=== PATIENT | female | born 2005 | race Two or more races ===

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

== ENCOUNTER 2025-03-09 18:45 | Emergency (ER) | payer MEDICAID ==
[~2025-03-09] VITALS: Ht 152.4 cm; Wt 44.5 kg
[2025-03-09 19:24] LABS: Hematocrit 42.9 % (36.0-46.0); Hemoglobin 14.5 g/dL (12.2-16.2); Mean Corpuscular Hemoglobin 31.6 pg (28.0-32.0); Mean Corpuscular Volume 93.2 fL (80.0-100.0); Nucleated Red Blood Cells % 0.1 %
[2025-03-09 19:37] LABS: Alanine Aminotransferase 11 U/L (7-40); Alkaline Phosphatase 63 U/L (46-116); Anion Gap 14 (5-15); BUN/Creatinine Ratio 19.3 (10.0-20.0); Blood Urea Nitrogen 11 mg/dL (9-23); Calcium 9.8 mg/dL (8.7-10.4); Carbon Dioxide 20 mmol/L (20-31); Chloride 104 mmol/L (98-107); Glucose 105 mg/dL (74-106); Lipase 31 U/L (12-53); Potassium 3.4 mmol/L (3.5-5.1); Sodium 138 mmol/L (136-145); Total Protein 8.0 g/dL (5.7-8.2)
[2025-03-09 19:38] LABS: Albumin 5.1 g/dL (3.2-4.8); Bilirubin, Total 0.7 mg/dL (0.2-1.0)
[2025-03-09 20:23] LABS: Urine Protein, UAD 2+ (Negative)
--- NOTE | 2025-03-09 20:28 | ED.PDOC ---
History of Present Illness HPI Comments 19-year-old female who presents with chief complaint of nausea, vomiting, and diarrhea. Patient endorses on 1 day history of symptoms. Symptoms are constant. Vomitus is reported to contain food content only. She reports on learning on being , recently, 2 days ago. Patient is unaware of how far along her she is in. Last menstrual period stated to be 02/21/2025. No recent injuries, travel, sick contact, or significant medical or surgical history, aside from previous H pylori. Denies having any abdominal pain, bloody or bilious vomitus, diarrhea, constipation, urinary symptoms, fever, chills, or further associated symptoms. REVIEW OF SYSTEMS: General: No fever, no chills, HEENT: No neck pain, no blurred vision Cardiac: No chest pain. No palpitations. Lungs: No shortness of breath, GI: Nausea, vomiting, diarrhea, no abdominal pain Musculoskeletal: No joint pain , no back pain Skin: No rash, no wound Neuro: No headache, no dizziness, no syncope PHYSICAL EXAM: General: Awake, alert and oriented. No acute distress. Skin: Skin in warm, dry and intact without rashes or lesions. HEENT: The head is normocephalic and atraumatic. Conjunctivae are clear without exudates or hemorrhage. Sclera is non-icteric. Neck: Normal range of motion. No JVD. Cardiac: Regular rate Respiratory: No signs of respiratory distress. No Stridor. Gastrointestinal: epigastric tenderness Extremities: Upper and lower extremities are atraumatic in appearance without deformity. Neurological: The patient is awake, alert and oriented to person, place, and time with normal speech. Speech is clear. There is no facial asymmetry. Psychiatric: Appropriate mood and affect. Good judgement and insight. Chief Complaint: Nausea/Vomiting Time Seen by MD: 19:00 Primary Care Provider: KUSHAL Michael Notes: Nurses Notes, Medications, Allergies Allergies: Coded Allergies: NO KNOWN ALLERGIES (Unverified , 08/07/18) Home Meds Active Scripts Pyridoxine Hcl (Vitamin B-6) 25 Mg Tab, 25 MG PO Q8HPRN PRN for 10 Days, #30 TAB Prov:KIRSTEN PATEL MD 03/09/25 Information Source: Patient Mode of Arrival: Ambulatory Severity: Moderate Timing: Days Duration: Since onset Prehospital treatment: None Past Medical History Past Medical History (Other): Previous H pylori infection Surgical History: Denies all surgeries WINDOW DECORATOR History: No Pertinent WINDOW DECORATOR History LMP 02/01/2025 Family History Family History: Reviewed,noncontributory to illness, Unknown Social History Smoker: Non-Smoker Alcohol: Denies ETOH Use Drugs: Denies Drug Use Lives In: Home Was a procedure done? Was a procedure done?: No Differential Dx Considerations may include: Differential diagnosis considered include but are not limited to nausea and vomiting of , UTI, thyroid disorder, pancreatitis, electrolyte imbalance, molar , other X-Ray, Labs, Meds, VS Vital Signs Date Time Temp Pulse Resp B/P (MAP) Pulse Ox O2 Delivery O2 Flow Rate FiO2 03/09/25 22:29 88 16 98 Room Air* 0 21 03/09/25 22:29 97.9 88 16 114/75 (88) 98 97.9 03/09/25 18:50 98.6 119 16 126/66 98 98.6 Lab Test 03/09/25 20:00 03/09/25 19:05 Range/Units Urine Color Yellow Yellow Urine Clarity Turbid H Clear Urine pH 6.0 5.0-9.0 Urine Specific [place] 1.034 1.001-1.035 Urine Protein 2+ H Negative Urine Ketones 4+ H Negative Urine Blood Trace H Negative /uL Urine Nitrite Negative Negative Urine Bilirubin Negative Negative Urine Urobilinogen 2 H Negative mg/dL Urine Leukocyte Esterase Negative Negative /uL Urine Glucose Trace Normal mg/dL Urine Test Positive Negative White Blood Count 11.7 H 4.4-10.8 10^3/uL Red Blood Count 4.60 4.0-5.20 10^6/uL Hemoglobin 14.5 12.2-16.2 g/dL Hematocrit 42.9 36.0-46.0 % Mean Corpuscular Volume 93.2 80.0-100.0 fL Mean Corpuscular Hemoglobin 31.6 28.0-32.0 pg Mean Corpuscular Hemoglobin Concent 33.9 32.0-36.0 g/dL Red Cell Distribution Width 13.0 11.8-14.3 % Platelet Count 341 140-450 10^3/uL Mean Platelet Volume 8.5 6.9-10.8 fL Neutrophils (%) (Auto) 85.5 H 37.0-80.0 % Lymphocytes (%) (Auto) 11.1 10.0-50.0 % Monocytes (%) (Auto) 3.1 0.0-12.0 % Eosinophils (%) (Auto) 0.0 0.0-7.0 % Basophils (%) (Auto) 0.3 0.0-2.0 % Neutrophils # (Auto) 10.0 H 1.6-8.6 10 ^3/uL Lymphocytes # (Auto) 1.3 0.4-5.4 10 ^3/uL Monocytes # (Auto) 0.4 0-1.3 10 ^3/uL Eosinophils # (Auto) 0 0-0.8 10 ^3/uL Basophils # (Auto) 0 0-0.2 10 ^3/uL Nucleated Red Blood Cells 0.1 % Sodium Level 138 136-145 mmol/L Potassium Level 3.4 L 3.5-5.1 mmol/L Chloride Level 104 98-107 mmol/L Carbon Dioxide Level 20 20-31 mmol/L Anion Gap 14 5-15 Blood Urea Nitrogen 11 9-23 mg/dL Creatinine 0.57 0.550-1.02 mg/dL Glomerular Filtration Rate Calc 133 >90 mL/min BUN/Creatinine Ratio 19.3 10.0-20.0 Serum Glucose 105 74-106 mg/dL Lactic Acid Level 1.5 0.4-2.0 mmol/L Calcium Level 9.8 8.7-10.4 mg/dL Total Bilirubin 0.7 0.2-1.0 mg/dL Aspartate Amino Transferase (AST) 15 13-40 U/L Alanine Aminotransferase (ALT) 11 7-40 U/L Alkaline Phosphatase 63 46-116 U/L Total Protein 8.0 5.7-8.2 g/dL Albumin 5.1 H 3.2-4.8 g/dL Lipase 31 12-53 U/L Current Medications Medications (Trade) Dose Ordered Sig/Juan Luis Route Start Time Stop Time Status Last Admin Ondansetron HCl (Zofran Po) 4 mg ONCE ONCE PO 03/09/25 19:00 03/09/25 19:01 DC 03/09/25 22:02 Pyridoxine HCl (Vitamin B-6 Tablet) 50 mg ONCE ONCE PO 03/09/25 19:45 03/09/25 19:46 DC 03/09/25 22:02 Potassium Chloride (Klor-Con Tablet) 40 meq ONCE ONCE PO 03/09/25 20:30 03/09/25 20:35 DC 03/09/25 22:02 Time of 1ST Reevaluation: 19:30 Reevaluation 1ST: Unchanged Patient Education/Counseling: Need For Follow Up Family Education/Counseling: No Family Present SEPSIS Sepsis Screen Date sepsis recognized/suspect: Mar 09, 2025 Time Sepsis recognized/suspect: 1854 Recent Procedure: No On Antibiotic Therapy: No Respiratory Rate >20: No Heart Rate >90: No Temp<36 C (96.8 F) or >38.3 C: No SBP <90 or MAP <65 mmHG: No New Acute Mental Status Change: No Is the patient on CPAP, BIPAP,: No Vital Signs Date Time Temp Pulse Resp B/P (MAP) Pulse Ox O2 Delivery O2 Flow Rate FiO2 03/09/25 22:29 88 16 98 Room Air* 0 21 03/09/25 22:29 97.9 88 16 114/75 (88) 98 97.9 03/09/25 18:50 98.6 119 16 126/66 98 98.6 Laboratory Tests Test 03/09/25 19:05 Lactic Acid Level 1.5 mmol/L (0.4-2.0) White Blood Count 11.7 10^3/uL (4.4-10.8) H Medications Medications Dose Ordered Sig/Juan Luis Route Start Time Stop Time Status Last Admin Dose Admin Ondansetron HCl 4 mg ONCE ONCE PO 03/09/25 19:00 03/09/25 19:01 DC 03/09/25 22:02 Potassium Chloride 40 meq ONCE ONCE PO 03/09/25 20:30 03/09/25 20:35 DC 03/09/25 22:02 Pyridoxine HCl 50 mg ONCE ONCE PO 03/09/25 19:45 03/09/25 19:46 DC 03/09/25 22:02 Departure 1 Departure Time of Disposition: 04:11 Impression: Primary Impression: Vomiting of Additional Impression: Hypokalemia Disposition: 01 HOME / SELF CARE / HOMELESS Condition: Stable Additional Instructions: ED DISCHARGE INSTRUCTIONS Instructions: Please read all instructions provided in this packet carefully. Although you have been discharged from the Emergency Department, this does not mean that you have a "clean bill of health". No definitive diagnosis for your symptoms has been made today. It is possible that you are in the process of developing a serious illness. This is why you must return to the ED without fail if any new or worsening symptoms (especially if your symptoms include chest pain, trouble breathing, abdominal pain, fever, headache, confusion, trouble seeing, or trouble walking) It is also very important that you see a primary care provider (PCP) within the next1-3 days to follow up. If you are unable to get an appointment, return to the ED for re-evaluation. e-Prescriptions Pyridoxine Hcl (Vitamin B-6) 25 Mg Tab 25 MG PO Q8HPRN PRN for 10 Days, #30 TAB Prov: KIRSTEN PATEL MD 03/09/25 Discharged With: Self Comments MDM: Patient well-appearing, nontoxic. Symptoms improved in the ED. Advised prompt follow-up with PCP, return to the ED with any new, worsening or concerning symptoms. I reviewed the following notes from the pt's past medical encounters: N/A The following tests were ordered, and results were reviewed by me: (See diagnostic results section) The following test were independently interpreted by me: N/A Additional information was gathered from interviewing the following independent historians: N/A I reviewed and agreed with the following test results read by other providers: N/A I discussed treatments and results with patient Decision regarding hospitalization or escalation of hospital level of care: Risks and benefits of admission for further treatment of patient's condition was considered however due to patient's stable condition patient will be discharged to follow up closely or return to care for worsening of condition or inability to follow up. Critical Care Note Critical Care Time?: No Stability Stability form required: No Heart Score Heart Score: Heart Score Response (Comments) Value History N/A 0 EKG N/A 0 Age N/A 0 Risk Factors N/A 0 Troponin N/A 0 Total 0 I personally scribed for KIRSTEN PATEL MD ([email or web address]) on 03/09/25 at 20:28. Electronically submitted by Manpreet Nuñez ([email or web address]). I personally scribed for KIRSTEN APTEL MD ([email or web address]) on 03/09/25 at 20:32. Electronically submitted by Manpreet Nuñez ([email or web address]). I personally scribed for KIRSTEN PATEL MD ([email or web address]) on 03/09/25 at 20:53. Electronically submitted by Manpreet Nuñez ([email or web address]). I personally scribed for KIRSTEN PATEL MD ([email or web address]) on 03/09/25 at 23:29. Nathaly ctronically submitted by Manpreet Nuñez ([email or web address]). KIRSTEN PATEL MD Mar 09, 2025 20:28
[2025-03-09] MEDS ORDERED: PYRI25TA16 PO (20:30)
[2025-03-09] MEDS: POTASSIUM CHL 20 Meq TABLET PO ONE (22:02)
[2025-03-09] MEDS: ONDANSETRON ODT 4 MG TAB PO ONE (22:02)
[2025-03-09] MEDS: PYRIDOXINE HCL 50 MG TAB PO ONE (22:02)
[2025-03-09 22:29] VITALS: BP 114/75; PULSE 88; RESP 16; TEMP 97.9; O2SAT 98
== END 2025-03-09 22:22 | disposition home or self-care (01) ==
LOC: ER 18:45
DX: O21.9 Vomiting of pregnancy, unspecified (principal); E87.6 Hypokalemia; Z86.19 Personal history of other infectious and parasitic diseases; Z79.899 Other long term (current) drug therapy; Z3A.01 Less than 8 weeks gestation of pregnancy
CPT/HCPCS: 36415; 80053; 81003; 81025; 83605; 83690; 85025; 99284; Q0162

== ENCOUNTER 2025-03-10 21:35 | Emergency (ER) | payer MEDICAID ==
[~2025-03-10] VITALS: Ht 152.4 cm; Wt 41.3 kg
[~2025-03-10 21:35] MED LIST: PYRI25TA16 PO
[2025-03-10 21:37] VITALS: BP 124/75; PULSE 72; RESP 20; TEMP 97.9; O2SAT 100
--- NOTE | 2025-03-10 21:54 | ED.PDOC ---
FINGERNAIL FORMER HPI Comments This is a 19 year-old female who presents to the ED with a chief complaint of umbilical abdominal pain with associated diarrhea for X1 day. Patient reports additional symptoms of nausea as of X2 days ago. Patient is currently with her first child. Patient came to the ED for abdominal pain yesterday, 03/09/25, but came to the ED today upon worsening symptoms and prescribed medications not helping. Patient has no further complaints at this time and otherwise denies V/D, vaginal bleeding, dizziness, fever, chills, or dysuria. REVIEW OF SYSTEMS: General: No fever, no chills, or fatigue HEENT: No sore throat, no earache, no congestion, no neck pain. Cardiac: No chest pain. No palpitations. Lungs: No shortness of breath, no cough. GI: (+) nausea, (+) abdominal pain, (+) , (+) diarrhea, no vomiting, no constipation : No dysuria, frequency, or urgency. No hematuria. Musculoskeletal: No joint pain , no joint swelling, no extremity edema. Skin: No rash, no itching. Neuro: No headache, no dizziness, no weakness Physical exam General: (+) Mild Distress. Awake, alert and oriented. Skin: Skin in warm, dry and intact. Appropriate color for ethnicity. HEENT: The head is normocephalic and atraumatic. Conjunctivae are clear without exudates or hemorrhage. Sclera is non-icteric. EOM are intact. No signs of nystagmus. Eyelids are normal in appearance without swelling or lesions. Oral m ucosa is pink and moist Neck: The neck is supple with normal range of motion. No JVD. Cardiac: Heart rate and rhythm are normal. No murmurs, gallops, or rubs are auscultated. Respiratory: No signs of respiratory distress. Lung sounds are clear in all lobes bilaterally without rales, rhonchi, or wheezes. Abdominal: (+) Periumbilical Tenderness. Bowel sounds are present and nor moactive in all four quadrants. Extremities: Upper and lower extremities are atraumatic in appearance without deformity or edema. Neurological: The patient is awake, alert and oriented to person, place, and time with normal speech. Speech is clear. There is no facial asymmetry. Psychiatric: Appropriate mood and affect. Good judgement and insight. Chief Complaint: Abdominal Pain Time Seen by MD: 21:50 Reviewed Notes: Nurses Notes, Medications, Allergies Allergies: Coded Allergies: NO KNOWN ALLERGIES (Unverified , 08/07/18) Home Meds Active Scripts Pyridoxine Hcl (Vitamin B-6) 25 Mg Tab, 25 MG PO Q8HPRN PRN for 10 Days, #30 TAB Prov:KIRSTEN PATEL MD 03/09/25 Information Source: Patient Mode of Arrival: Ambulatory Timing: Days Severity: Moderate Sexual Activity: Associated Signs and Symptoms: Abdominal Pain Past Medical History PAST MEDICAL HISTORY: Denies Surgical History: Denies all surgeries LEAD MECHANICAL ENGINEER History: No Pertinent LEAD MECHANICAL ENGINEER History 1 Para 0 Family History Family History: Reviewed,noncontributory to illness, Unknown Social History Smoker: Non-Smoker Alcohol: Denies ETOH Use Drugs: Denies Drug Use Lives In: Home Was a procedure done? Was a procedure done?: No Differential Diagnosis (LEAD MECHANICAL ENGINEER) Vaginal Bleeding: - Threatened, Ectopic , Trauma, UTI, Vaginitis, Other ( , other) X-Ray, Labs, Meds, VS Vital Signs Date Time Temp Pulse Resp B/P (MAP) Pulse Ox O2 Delivery O2 Flow Rate FiO2 03/10/25 21:37 97.9 72 20 124/75 100 97.9 Lab Test 03/10/25 23:53 03/10/25 22:10 Range/Units Urine Color Light-orange Yellow Urine Clarity Turbid H Clear Urine pH 5.5 5.0-9.0 Urine Specific [place] 1.030 1.001-1.035 Urine Protein 1+ H Negative Urine Ketones 3+ H Negative Urine Blood Negative Negative /uL Urine Nitrite Negative Negative Urine Bilirubin Negative Negative Urine Urobilinogen Normal Negative mg/dL Urine Leukocyte Esterase Trace Negative /uL Urine RBC None seen 0 - 4 /hpf Urine Microscopic WBC 4 0-5 /HPF Urine Squamous Epithelial Cells Few <5 /hpf Urine Bacteria Few H None Seen /hpf Urine Mucus Many None Seen Urine Glucose Trace Normal mg/dL White Blood Count 14.6 H 4.4-10.8 10^3/uL Red Blood Count 4.56 4.0-5.20 10^6/uL Hemoglobin 14.4 12.2-16.2 g/dL Hematocrit 41.9 36.0-46.0 % Mean Corpuscular Volume 91.8 80.0-100.0 fL Mean Corpuscular Hemoglobin 31.6 28.0-32.0 pg Mean Corpuscular Hemoglobin Concent 34.5 32.0-36.0 g/dL Red Cell Distribution Width 12.8 11.8-14.3 % Platelet Count 371 140-450 10^3/uL Mean Platelet Volume 8.3 6.9-10.8 fL Neutrophils (%) (Auto) 83.9 H 37.0-80.0 % Lymphocytes (%) (Auto) 12.0 10.0-50.0 % Monocytes (%) (Auto) 3.8 0.0-12.0 % Eosinophils (%) (Auto) 0.0 0.0-7.0 % Basophils (%) (Auto) 0.3 0.0-2.0 % Neutrophils # (Auto) 12.3 H 1.6-8.6 10 ^3/uL Lymphocytes # (Auto) 1.8 0.4-5.4 10 ^3/uL Monocytes # (Auto) 0.6 0-1.3 10 ^3/uL Eosinophils # (Auto) 0 0-0.8 10 ^3/uL Basophils # (Auto) 0 0-0.2 10 ^3/uL Nucleated Red Blood Cells 0.0 % Sodium Level 139 136-145 mmol/L Potassium Level 3.2 L 3.5-5.1 mmol/L Chloride Level 107 98-107 mmol/L Carbon Dioxide Level 13 L 20-31 mmol/L Anion Gap 19 H 5-15 Blood Urea Nitrogen 12 9-23 mg/dL Creatinine 0.63 0.550-1.02 mg/dL Glomerular Filtration Rate Calc 129 >90 mL/min BUN/Creatinine Ratio 19.0 10.0-20.0 Serum Glucose 137 H 74-106 mg/dL Calcium Level 9.8 8.7-10.4 mg/dL Total Bilirubin 1.1 H 0.2-1.0 mg/dL Aspartate Amino Transferase (AST) 14 13-40 U/L Alanine Aminotransferase (ALT) 13 7-40 U/L Alkaline Phosphatase 61 46-116 U/L Total Protein 7.9 5.7-8.2 g/dL Albumin 5.1 H 3.2-4.8 g/dL Lipase 28 12-53 U/L Beta HCG, Quantitative 25172.3 H 1.5-4.2 mIU/mL Time of 1ST Reevaluation: 22:38 Reevaluation 1ST: Unchanged Patient Education/Counseling: Need For Follow Up Family Education/Counseling: No Family Present Departure 1 Departure Time of Disposition: 00:40 Impression: Primary Impression: Eloped from emergency department Additional Impressions: Nausea/vomiting in Abdominal pain in Disposition: 07 LEFT AWOL/ELOPED Condition: Other Discharged With: Self Comments Patient was seen and evaluated. Discussed plan of care with the patient. She e loped from the emergency department prior to completing treatment and workup. Critical Care Note Critical Care Time?: No Stability Stability form required: No Heart Score Heart Score: Heart Score Response (Comments) Value History N/A 0 EKG N/A 0 Age N/A 0 Risk Factors N/A 0 Troponin N/A 0 Total 0 I personally scribed for KIRSTEN PATEL MD ([email or web address]) on 03/10/25 at 21:54. Electronically submitted by Marsha Cuadra ([email or web address]). I personally scribed for KIRSTEN PATEL MD ([email or web address]) on 03/10/25 at 22:29. Electronically submitted by Marsha Cuadra ([employer]). KIRSTEN PATEL MD Mar 10, 2025 21:54
[2025-03-10] MEDS ORDERED: ACETAMINOPHEN 500 MG TAB or CAP PO ONE (22:00)
[2025-03-10] MEDS ORDERED: PYRIDOXINE HCL 50 MG TAB PO ONE (22:00)
[2025-03-10 22:22] LABS: Hematocrit 41.9 % (36.0-46.0); Hemoglobin 14.4 g/dL (12.2-16.2); Mean Corpuscular Hemoglobin 31.6 pg (28.0-32.0); Mean Corpuscular Volume 91.8 fL (80.0-100.0); Nucleated Red Blood Cells % 0.0 %
[2025-03-10] MEDS ORDERED: SODIUM CHLORIDE 0.9% 1,000 ML IV ONE (22:30)
[2025-03-10] MEDS ORDERED: ONDANSETRON HCL 4 MG/2 ML VIAL IV ONE (22:30)
[2025-03-10 22:59] LABS: Alanine Aminotransferase 13 U/L (7-40); Alkaline Phosphatase 61 U/L (46-116); Anion Gap 19 (5-15); BUN/Creatinine Ratio 19.0 (10.0-20.0); Blood Urea Nitrogen 12 mg/dL (9-23); Calcium 9.8 mg/dL (8.7-10.4); Lipase 28 U/L (12-53); Sodium 139 mmol/L (136-145); Total Protein 7.9 g/dL (5.7-8.2)
[2025-03-10 23:00] LABS: Bilirubin, Total 1.1 mg/dL (0.2-1.0)
[2025-03-10 23:10] LABS: Albumin 5.1 g/dL (3.2-4.8); Carbon Dioxide 13 mmol/L (20-31); Chloride 107 mmol/L (98-107); Glucose 137 mg/dL (74-106); Potassium 3.2 mmol/L (3.5-5.1)
[2025-03-11 01:27] LABS: Urine Protein, UAD 1+ (Negative)
== END 2025-03-11 00:40 | disposition left against medical advice (07) ==
LOC: ER 21:35
DX: O20.0 Threatened abortion (principal); O21.9 Vomiting of pregnancy, unspecified; R10.9 Unspecified abdominal pain; Z3A.00 Weeks of gestation of pregnancy not specified
CPT/HCPCS: 36415; 80053; 81001; 83690; 84702; 85025

== ENCOUNTER 2025-03-13 09:31 | Emergency (ER) | payer MEDICAID ==
[~2025-03-13] VITALS: Ht 152.4 cm; Wt 41.7 kg
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
[2025-03-13] MEDS: ONDANSETRON HCL 4 MG/2 ML VIAL IV ONE (10:36)
[2025-03-13] MEDS: SODIUM CHLORIDE 0.9% 1,000 ML IV ONE (10:36)
[2025-03-13 10:50] LABS: Chloride 99 mmol/L (98-107); Hematocrit 43.8 % (36.0-46.0); Hemoglobin 15.4 g/dL (12.2-16.2); Mean Corpuscular Hemoglobin 32.2 pg (28.0-32.0); Mean Corpuscular Volume 91.3 fL (80.0-100.0); Nucleated Red Blood Cells % 0.1 %
[2025-03-13 10:51] LABS: Anion Gap 14 (5-15); Carbon Dioxide 23 mmol/L (20-31); Potassium 3.0 mmol/L (3.5-5.1); Sodium 136 mmol/L (136-145)
[2025-03-13 10:52] LABS: Calcium 10.0 mg/dL (8.7-10.4)
[2025-03-13 10:56] LABS: Cannabinoid Screen, Urine Pos (NEGATIVE)
[2025-03-13 10:56] LABS: BUN/Creatinine Ratio 15.4 (10.0-20.0); Blood Urea Nitrogen 10 mg/dL (9-23); Glucose 82 mg/dL (74-106)
[2025-03-13 10:59] LABS: Amphetamine Screen, Urine Neg (NEGATIVE); Barbiturate Scree,Urine Neg (NEGATIVE); Benzodiazephine Screen, Urine Neg (NEGATIVE); Cocaine Screen, Urine Neg (NEGATIVE); Opiate Scree,Urine Neg (NEGATIVE); Phencyclidine Screen, Urine Neg (NEGATIVE)
[2025-03-13 11:03] LABS: Urine Protein, UAD 2+ (Negative); Urine WBC Clumps PRESENT /hpf (None Seen)
--- NOTE | 2025-03-13 11:40 | DVH ---
OB ULTRASOUND <14 WEEKS: HISTORY: PELVIC PAIN WITH N/V TECHNIQUE: Multiple real-time grayscale sonographic images of the pelvis with duplex Doppler color f low, spectral and M-mode analysis. TRANSDUCERS: Transabdominal COMPARISON: None FINDINGS: The uterus measures 8.3 x 7.3 x 4.0 cm The cervix is not visualized Right ovary measures 3.5 x 4.4 x 3.9 cm with normal Doppler color flow. Right ovarian cyst measures 3 .2 cm. Left ovary measures 3.3 x 1.8 x 2.4 cm with normal Doppler color flow. IUP single fetus at 6 weeks and 0 days average ultrasound age based on mean crown-rump length of 0.3 5 cm and gestational sac size of 1.63 cm heart rate detected at 123 beats per minute. Yolk sac is present. Amniotic fluid is subjectively within normal limits Melany-gestational space: Unremarkable IMPRESSION: IUP single live fetus 6 weeks and 0 days AUA corresponding to an ERICA of 11/06/2025. No acute abnormality detected.
[2025-03-13] MEDS: POTASSIUM EFFERVESENT TAB 25 MEQ PO ONE (11:45)
[2025-03-13] MEDS ORDERED: ZOFR4T PO (11:51)
[2025-03-13] MEDS: cefTRIAXone 1GM/50ML D5W 50 ML IV ONE (11:51)
[2025-03-13 12:10] VITALS: BP 104/69; PULSE 84; RESP 14; TEMP 97.7; O2SAT 99
== END 2025-03-13 12:14 | disposition home or self-care (01) ==
LOC: ER 09:31
DX: O21.0 Mild hyperemesis gravidarum (principal); O23.41 Unspecified infection of urinary tract in pregnancy, first trimester; R10.2 Pelvic and perineal pain; N39.0 Urinary tract infection, site not specified; Z79.899 Other long term (current) drug therapy; Z3A.01 Less than 8 weeks gestation of pregnancy
CPT/HCPCS: 36415; 76801; 80048; 80307; 81001; 84702; 85025; 96360; 99284; J7030; J2405

== ENCOUNTER 2025-04-03 04:32 | Emergency (ER) | payer MEDICAID ==
[~2025-04-03] VITALS: Ht 152.4 cm; Wt 44.0 kg
[~2025-04-03 04:32] MED LIST changes: +ZOFR4T PO
[2025-04-03] MEDS ORDERED: ZOFR4T PO (04:58)
[2025-04-03] MEDS ORDERED: METO5TAB67 PO (04:58)
--- NOTE | 2025-04-03 05:04 | ED.PDOC ---
GI ASSESSMENT HPI Comments 20 year old female presents to the ED with a chief complaint of nausea/vomiting onset 2 days. Patient states she is currently 9 weeks , ran out of Zofran prescription. For the past few days, she has been experiencing nausea, vomiting, abdominal discomfort. Denies any PMHx as well as vaginal bleeding, vaginal discharge, dysuria, hematuria, hematemesis, fever, chills, weakness, dizziness. No other symptoms or modifying factors present at this time. Chief Complaint: Nausea/Vomiting Time Seen by MD: 04:50 Primary Care Provider: KUSHAL Michael Notes: Medications, Allergies Allergies: Coded Allergies: NO KNOWN ALLERGIES (Unverified , 08/07/18) Home Meds Active Scripts Metoclopramide Hcl (Reglan) 5 Mg Tab, 5 MG PO Q6HP PRN, #30 TAB Prov:JENNIFER HARPER MD 04/03/25 Ondansetron Odt 4MG Tab (ZOFRAN PO) 4 Mg Tb, 4 MG PO Q6HP PRN, #60 TAB 3 Refills ODT TAB-DISSOLVE IN MOUTH, THEN SWALLOW Prov:JENNIFER HARPER MD 04/03/25 Ondansetron Odt 4MG Tab (ZOFRAN PO) 4 Mg Tb, 4 MG PO BID, #20 TAB ODT TAB-DISSOLVE IN MOUTH, THEN SWALLOW Prov:EDWARD LEWIS 03/13/25 Pyridoxine Hcl (Vitamin B-6) 25 Mg Tab, 25 MG PO Q8HPRN PRN for 10 Days, #30 TAB Prov:KIRSTEN PATEL MD 03/09/25 Information Source: Patient Mode of Arrival: Ambulatory Timing: Days Duration: Since onset Prehospital treatment: None Quality: Cramping Severity: Moderate Recent: None Recent Hx of: Current Pain Location: Diffuse Modifying Factors: Nothing Associated sign and symptoms: Nausea, Vomiting, Diarrhea, Abdominal Pain Past Medical History PAST MEDICAL HISTORY: Denies Surgical History: Denies all surgeries PROFILE GRINDER History: No Pertinent PROFILE GRINDER History Family History Family History: Reviewed,noncontributory to illness Social History Smoker: Non-Smoker Alcohol: Denies ETOH Use Drugs: Denies Drug Use Lives In: Home Constitutional: denies: chills, diaphoresis, fatigue, fever, malaise, sweats, weakness, others EENTM: denies: blurred vision, double vision, ear bleeding, ear discharge, ear drainage, ear pain, ear ringing, eye pain, eye redness, hearing loss, mouth pain, mouth swelling, nasal discharge, nose bleeding, nose congestion, nose pain, photophobia, tearing, throat pain, throat swelling, voice changes, others Respiratory: denies: cough, hemoptysis, orthopnea, SOB at rest, shortness of breath, SOB with excertion, stridor, wheezing, others Cardiovascular: denies: chest pain, dizzy spells, diaphoresis, Dyspnea on exertion, edema, irregular heart beat, left arm pain, lightheadedness, palpitations, PND, syncope, others Gastrointestinal: reports: abdominal pain, diarrhea, nausea, vomiting; denies: abdomen distended, blood streaked bowels, constipated, dysphagia, difficulty swallowing, hematemesis, melena, poor appetite, poor fluid intake, rectal bleeding, rectal pain, others Genitourinary: reports: ; denies: abnormal vagina bleeding, burning, dyspareunia, dysuria, flank pain, frequency, hematuria, incontinence, pain, vagina discharge, urgency, others Neurological: denies: dizziness, fainting, headache, left sided numbness, left sided weakness, numbness, paresthesia, pre-existing deficit, right sided numbness, right sided weakness, seizure, speech problems, tingling, tremors, weakness, others Musculoskeletal: denies: back pain, gout, joint pain, joint swelling, muscle pain, muscle stiffness, neck pain, others Integumetry: denies: bruises, change in color, change in hair/nails, dryness, laceration, lesions, lumps, rash, wounds, others Allergic/Immunocompromised: denies: Difficulty Healing, Frequent Infections, Hives, Itching, others Hematologic/Lymphatic: denies: anemia, blood clots, easy bleeding, easy bruising, swollen glands, others Endocrine: denies: excessive hunger, excessive sweating, excessive thirst, excessive urination, flushing, intolerance to cold, intolerance to heat, unexplained weight gain, unexplained weight loss, others Psychiatric: denies: anxiety, bipolar disorder, depression, hopeless, panic disorder, schizophrenia, sleepless, suicidal, others All Other Systems: Reviewed and Negative Physical Exam General Appearance: No Apparent Distress, Normal HEENT: Normal ENT Inspection, Pharynx Normal, TMs Normal Neck: Full Range of Motion, Non-Tender, Normal, Normal Inspection Respiratory: Chest Non-Tender, Lungs Clear, No Accessory Muscle Use, No Respiratory Distress, Normal Breath Sounds Cardiovascular: No Edema, No JVD, No Murmur, No Gallop, Normal Peripheral Pulses, Regular Rate/Rhythm Breast Exam: Deferred Gastrointestinal: No Organomegaly, Non Tender, No Pulsatile Mass, Normal Bowel Sounds, Soft Genitalia: Deferred Pelvic: Deferred Rectal: Deferred Extremities: No calf tenderness, Normal capillary refill, Normal inspection, Normal range of motion, Non-tender, No pedal edema Musculoskeletal : Apperance: Normal Neurologic: Alert, veneer marker II-XII nml as Tested, No Motor Deficits, Normal Affect, Normal Mood, No Sensory Deficits Cerebellar Function: Normal Reflexes: Normal Skin: Dry, Normal Color, Warm Lymphatic: No Adenopathy Was a procedure done? Was a procedure done?: No GI differential Dx Differential Diagnosis: Gastritis/PUD, Gastroenteritis, Urolithiasis, Dehydration, Electrolyte Imbalance, Food Poisoning X-Ray, Labs, Meds, VS Vital Signs Date Time Temp Pulse Resp B/P (MAP) Pulse Ox O2 Delivery O2 Flow Rate FiO2 04/03/25 06:33 91 18 98 Room Air* 0 21 04/03/25 06:20 98.9 91 18 99/74 (82) 98 98.9 04/03/25 04:34 98.6 84 18 118/87 98 98.6 Lab Test 04/03/25 05:26 Range/Units White Blood Count 13.3 H 4.4-10.8 10^3/uL Red Blood Count 4.71 4.0-5.20 10^6/uL Hemoglobin 15.1 12.2-16.2 g/dL Hematocrit 43.4 36.0-46.0 % Mean Corpuscular Volume 92.2 80.0-100.0 fL Mean Corpuscular Hemoglobin 32.0 28.0-32.0 pg Mean Corpuscular Hemoglobin Concent 34.8 32.0-36.0 g/dL Red Cell Distribution Width 12.8 11.8-14.3 % Platelet Count 320 140-450 10^3/uL Mean Platelet Volume 8.2 6.9-10.8 fL Neutrophils (%) (Auto) 93.2 H 37.0-80.0 % Lymphocytes (%) (Auto) 5.1 L 10.0-50.0 % Monocytes (%) (Auto) 1.6 0.0-12.0 % Eosinophils (%) (Auto) 0.0 0.0-7.0 % Basophils (%) (Auto) 0.1 0.0-2.0 % Neutrophils # (Auto) 12.4 H 1.6-8.6 10 ^3/uL Lymphocytes # (Auto) 0.7 0.4-5.4 10 ^3/uL Monocytes # (Auto) 0.2 0-1.3 10 ^3/uL Eosinophils # (Auto) 0 0-0.8 10 ^3/uL Basophils # (Auto) 0 0-0.2 10 ^3/uL Nucleated Red Blood Cells 0.1 % Sodium Level 138 136-145 mmol/L Potassium Level 3.5 3.5-5.1 mmol/L Chloride Level 102 98-107 mmol/L Carbon Dioxide Level 19 L 20-31 mmol/L Anion Gap 17 H 5-15 Blood Urea Nitrogen 9 9-23 mg/dL Creatinine 0.61 0.550-1.02 mg/dL Glomerular Filtration Rate Calc 130 >90 mL/min BUN/Creatinine Ratio 14.8 10.0-20.0 Serum Glucose 148 H 74-106 mg/dL Calcium Level 10.1 8.7-10.4 mg/dL Magnesium Level 2.2 1.6-2.6 mg/dL Total Bilirubin 0.7 0.2-1.0 mg/dL Aspartate Amino Transferase (AST) 17 13-40 U/L Alanine Aminotransferase (ALT) 12 7-40 U/L Alkaline Phosphatase 58 46-116 U/L Total Protein 8.3 H 5.7-8.2 g/dL Albumin 4.9 H 3.2-4.8 g/dL Current Medications Medications (Trade) Dose Ordered Sig/Juan Luis Route Start Time Stop Time Status Last Admin Sodium Chloride 1,000 ml @ 1,000 mls/hr Q1H ONCE IV 04/03/25 05:00 04/03/25 05:59 DC 04/03/25 06:27 Ondansetron HCl (Zofran) 4 mg ONCE ONCE IV 04/03/25 05:00 04/03/25 05:01 DC 04/03/25 06:27 Time of 1ST Reevaluation: 05:20 Reevaluation 1ST: Unchanged Patient Education/Counseling: Diagnosis, Treatment, Prognosis Family Education/Counseling: No Family Present SEPSIS Sepsis Screen Date sepsis recognized/suspect: Apr 03, 2025 Time Sepsis recognized/suspect: 437 Recent Procedure: No On Antibiotic Therapy: No Respiratory Rate >20: No Heart Rate >90: No Temp<36 C (96.8 F) or >38.3 C: No SBP <90 or MAP <65 mmHG: No New Acute Mental Status Change: No Is the patient on CPAP, BIPAP,: No Vital Signs Date Time Temp Pulse Resp B/P (MAP) Pulse Ox O2 Delivery O2 Flow Rate FiO2 04/03/25 06:33 91 18 98 Room Air* 0 21 04/03/25 06:20 98.9 91 18 99/74 (82) 98 98.9 04/03/25 04:34 98.6 84 18 118/87 98 98.6 Laboratory Tests Test 04/03/25 05:26 White Blood Count 13.3 10^3/uL (4.4-10.8) H Medications Medications Dose Ordered Sig/Juan Luis Route Start Time Stop Time Status Last Admin Dose Admin Ondansetron HCl 4 mg ONCE ONCE IV 04/03/25 05:00 04/03/25 05:01 DC 04/03/25 06:27 Sodium Chloride 1,000 ml @ 1,000 mls/hr Q1H ONCE IV 04/03/25 05:00 04/03/25 05:59 DC 04/03/25 06:27 Departure 1 Departure Time of Disposition: 07:01 (Patient's workup was benign. We will discharge patient home with outpatient follow up) Impression: Primary Impression: Hyperemesis gravidarum Disposition: 01 HOME / SELF CARE / HOMELESS Condition: Stable Additional Instructions: Please continue to take your regular medications. If your symptoms worsen or you have any other concerns please return to the emergency room e-Prescriptions Metoclopramide Hcl (Reglan) 5 Mg Tab 5 MG PO Q6HP PRN, #30 TAB Prov: JENNIFER HARPER MD 04/03/25 Ondansetron Odt 4MG Tab (ZOFRAN PO) 4 Mg Tb 4 MG PO Q6HP PRN, #60 TAB 3 Refills ODT TAB-DISSOLVE IN MOUTH, THEN SWALLOW Prov: JENNIFER HARPER MD 04/03/25 Discharged With: Self Critical Care Note Critical Care Time?: No Stability Stability form required: No I personally scribed for JENNIFER HARPER MD ([email or web address]) on 04/03/25 at 05:04. Electronically submitted by Ariana Rees ([email or web address]). JENNIFER HARPER MD Apr 03, 2025 05:04 LELIA BROOKS MD Apr 03, 2025 07:01
[2025-04-03 05:55] LABS: Hematocrit 43.4 % (36.0-46.0); Hemoglobin 15.1 g/dL (12.2-16.2); Mean Corpuscular Hemoglobin 32.0 pg (28.0-32.0); Mean Corpuscular Volume 92.2 fL (80.0-100.0); Nucleated Red Blood Cells % 0.1 %
[2025-04-03] MEDS: SODIUM CHLORIDE 0.9% 1,000 ML IV ONE (06:27)
[2025-04-03] MEDS: ONDANSETRON HCL 4 MG/2 ML VIAL IV ONE (06:27)
[2025-04-03 06:33] VITALS: PULSE 91; RESP 18; O2SAT 98
[2025-04-03 06:41] LABS: Alanine Aminotransferase 12 U/L (7-40); Alkaline Phosphatase 58 U/L (46-116); Anion Gap 17 (5-15); BUN/Creatinine Ratio 14.8 (10.0-20.0); Bilirubin, Total 0.7 mg/dL (0.2-1.0); Calcium 10.1 mg/dL (8.7-10.4); Chloride 102 mmol/L (98-107); Magnesium 2.2 mg/dL (1.6-2.6); Sodium 138 mmol/L (136-145)
[2025-04-03 06:46] LABS: Albumin 4.9 g/dL (3.2-4.8); Blood Urea Nitrogen 9 mg/dL (9-23); Carbon Dioxide 19 mmol/L (20-31); Glucose 148 mg/dL (74-106); Potassium 3.5 mmol/L (3.5-5.1); Total Protein 8.3 g/dL (5.7-8.2)
[2025-04-03 07:56] VITALS: BP 105/77; PULSE 50; RESP 16; TEMP 98; O2SAT 97
== END 2025-04-03 07:54 | disposition home or self-care (01) ==
LOC: ER 04:32
DX: O21.0 Mild hyperemesis gravidarum (principal); Z3A.09 9 weeks gestation of pregnancy; Z79.899 Other long term (current) drug therapy
CPT/HCPCS: 36415; 80053; 83735; 85025; 96361; 96374; 99283; J2405; J7030

== ENCOUNTER 2025-07-19 19:37 | Observation (INO) | payer MEDICAID ==
[~2025-07-19 19:37] MED LIST changes: +METO5TAB67 PO
[2025-07-19] MEDS ORDERED: PREN-96 OR (20:32)
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
== END 2025-07-19 23:11 | disposition home or self-care (01) ==
LOC: LDRP 19:37
PROVIDERS: ADMIT Obstetrics & Gynecology; ATTEND Obstetrics & Gynecology
DX: O26.892 Other specified pregnancy related conditions, second trimester (principal); R11.0 Nausea; R51.9 Headache, unspecified; Z3A.24 24 weeks gestation of pregnancy; Z98.890 Other specified postprocedural states
CPT/HCPCS: 76815; 81002; 94760; A4649; G0378